=== PATIENT | female | born 1935 | race Two or more races ===

== ENCOUNTER 2018-03-03 08:37 | Outpatient (CLI) | payer OTHER | END 2018-03-03 15:06 | disposition home or self-care (01) | LOC: MAMO-SONO 08:37 | DX: Z12.31 Encounter for screening mammogram for malignant neoplasm of breast (principal); Z13.820 Encounter for screening for osteoporosis; I11.9 Hypertensive heart disease without heart failure; F03.91 Unspecified dementia, unspecified severity, with behavioral disturbance; Z68.30 Body mass index [BMI] 30.0-30.9, adult ==

== ENCOUNTER 2018-03-13 09:05 | Outpatient (CLI) | payer OTHER | END 2018-03-13 13:51 | disposition home or self-care (01) | LOC: NUCLEAR 09:05 | DX: M81.0 Age-related osteoporosis without current pathological fracture (principal) ==

== ENCOUNTER 2018-07-27 13:30 | Emergency (ER) | payer OTHER ==
[~2018-07-27] VITALS: Ht 162.6 cm; Wt 68.0 kg
[2018-07-27] MEDS ORDERED: COZAAR25 MG PO (14:20)
== END 2018-07-27 17:20 | disposition home or self-care (01) ==
LOC: ER 13:30
DX: N39.0 Urinary tract infection, site not specified (principal); R10.13 Epigastric pain; M54.89 Other dorsalgia

== ENCOUNTER 2018-11-04 14:15 | Outpatient (CLI) | payer OTHER ==
[~2018-11-04 14:15] MED LIST: COZAAR25 MG PO
== END 2018-11-04 15:15 | disposition home or self-care (01) ==
LOC: RAD 14:15
DX: M17.11 Unilateral primary osteoarthritis, right knee (principal); M54.5 Low back pain; K29.00 Acute gastritis without bleeding

== ENCOUNTER → 2019-01-21 | Outpatient (CLI) | payer OTHER | END | disposition home or self-care (01) | LOC: RAD 11:49 | DX: M54.2 Cervicalgia (principal) ==

== ENCOUNTER 2019-02-24 15:44 | Emergency (ER) | payer OTHER ==
[~2019-02-24] VITALS: Ht 160 cm; Wt 76.7 kg
== END 2019-02-24 17:12 | disposition home or self-care (01) ==
LOC: ER 15:44
DX: N64.4 Mastodynia (principal)

== ENCOUNTER 2019-03-27 12:30 | Emergency (ER) | payer OTHER ==
[~2019-03-27] VITALS: Ht 152.4 cm; Wt 76.2 kg
[2019-03-27] MEDS ORDERED: ASA81 MG (13:08)
== END 2019-03-27 14:47 | disposition home or self-care (01) ==
LOC: ER 12:30
DX: H92.02 Otalgia, left ear (principal); M54.2 Cervicalgia

== ENCOUNTER 2019-04-24 11:15 | Emergency (ER) | payer OTHER ==
[~2019-04-24] VITALS: Ht 157.5 cm; Wt 76.7 kg
[~2019-04-24 11:15] MED LIST changes: +ASA81 MG
== END 2019-04-24 14:27 | disposition home or self-care (01) ==
LOC: ER 11:15
DX: R10.13 Epigastric pain (principal); M54.2 Cervicalgia

== ENCOUNTER 2019-08-16 12:17 | Outpatient (CLI) | payer OTHER | END 2019-08-16 12:19 | disposition home or self-care (01) | LOC: RAD 12:17 | DX: M25.561 Pain in right knee (principal) ==

== ENCOUNTER → 2019-08-25 | Outpatient (CLI) | payer OTHER | END | disposition home or self-care (01) | LOC: SONOGRAMA 12:27 | DX: Z12.39 Encounter for other screening for malignant neoplasm of breast (principal) ==

== ENCOUNTER 2019-11-08 09:24 | Outpatient (CLI) | payer OTHER | END 2019-11-08 09:26 | disposition home or self-care (01) | LOC: SONOGRAMA 09:24 | DX: E04.2 Nontoxic multinodular goiter (principal) ==

== ENCOUNTER 2019-11-23 11:58 | Emergency (ER) | payer OTHER ==
[~2019-11-23] VITALS: Ht 152.4 cm; Wt 72.6 kg
== END 2019-11-23 15:01 | disposition home or self-care (01) ==
LOC: ER 11:58
DX: R42 Dizziness and giddiness (principal)

== ENCOUNTER → 2020-09-16 | Emergency (ER) | payer OTHER ==
[~2020-09-16] VITALS: Ht 149.9 cm; Wt 76.2 kg
[~2020-09-16] MED LIST changes: +CARAFATE1 GM PO; +MECLIZINE HCL25 MG PO; +PRILOSEC OTC20 MG PO; +TENORMIN25 MG
== END | disposition home or self-care (01) ==
LOC: ER 12:02
DX: R42 Dizziness and giddiness (principal); R10.13 Epigastric pain; Z03.818 Encounter for observation for suspected exposure to other biological agents ruled out

== ENCOUNTER → 2020-10-07 | Emergency (ER) | payer OTHER ==
[~2020-10-07] VITALS: Ht 152.4 cm; Wt 71.7 kg
== END | disposition home or self-care (01) ==
LOC: ER 16:30
DX: K29.60 Other gastritis without bleeding (principal); Z03.818 Encounter for observation for suspected exposure to other biological agents ruled out

== ENCOUNTER → 2020-10-27 | Emergency (ER) | payer OTHER ==
[~2020-10-27] VITALS: Ht 160 cm; Wt 70.8 kg
== END | disposition left against medical advice (07) ==
LOC: ER 13:29
DX: Z53.21 Procedure and treatment not carried out due to patient leaving prior to being seen by health care provider (principal)

== ENCOUNTER 2024-06-21 12:36 | Emergency (ER) | payer OTHER ==
[~2024-06-21] VITALS: Ht 152.4 cm; Wt 68.0 kg
[2024-06-21] MEDS ORDERED: KETOROLAC TROMETHAMINE 15 MG VIAL IM STA (13:37)
[2024-06-21] MEDS ORDERED: KETOROLAC TROMETHAMINE 30 MG VIAL ONE (13:49)
== END 2024-06-21 14:03 | disposition home or self-care (01) ==
LOC: ER 12:37
DX: M25.562 Pain in left knee (principal); M25.561 Pain in right knee
CPT/HCPCS: 96372; 99282; J1885

== ENCOUNTER 2024-07-02 12:42 | Emergency (ER) | payer OTHER ==
[~2024-07-02] VITALS: Ht 162.6 cm; Wt 81.6 kg
[2024-07-02 13:53] LABS: HEMATOCRIT 38.9 % (36.0-45.00); HEMOGLOBIN 13.5 g/dL (12.0-15.00); MEAN CELL VOLUME 93.8 fL (80.00-100.00); MEAN CORPUSCULAR HEMOGLOBIN 32.6 pg (27.00-32.0); MEAN CORPUSCULAR HGB CONC 34.7 g/dl (32.0-36.0); PLATELET COUNT 184 K/uL (150-450); RED BLOOD COUNT 4.15 M/uL (4.00-6.00); RED CELL DISTRIBUTION WIDTH 13.8 % (11.5-14.5)
[2024-07-02 14:09] LABS: ERYTHROCYTE SEDIMENTATION RATE 10 mm/hr
== END 2024-07-02 15:34 | disposition home or self-care (01) ==
LOC: ER 12:44
PROVIDERS: Emergency Medicine
DX: M25.561 Pain in right knee (principal); M17.11 Unilateral primary osteoarthritis, right knee; R10.9 Unspecified abdominal pain; I10 Essential (primary) hypertension

== ENCOUNTER 2024-08-27 13:09 | Emergency (ER) | payer OTHER ==
[~2024-08-27] VITALS: Ht 152.4 cm; Wt 72.6 kg
[2024-08-27] MEDS ORDERED: KETOROLAC TROMETHAMINE 60 MG VIAL IM STA (14:50)
== END 2024-08-27 18:40 | disposition home or self-care (01) ==
LOC: ER 13:11
DX: M19.90 Unspecified osteoarthritis, unspecified site (principal)
CPT/HCPCS: 96372; 99282; J1885

== ENCOUNTER → 2024-10-18 | Emergency (ER) | payer OTHER ==
[~2024-10-18] VITALS: Ht 157.5 cm; Wt 68.0 kg
== END | disposition left against medical advice (07) ==
LOC: ER 13:27
DX: Z53.21 Procedure and treatment not carried out due to patient leaving prior to being seen by health care provider (principal)

== ENCOUNTER → 2024-10-26 | Emergency (ER) | payer OTHER ==
[~2024-10-26] VITALS: Ht 152.4 cm; Wt 68.0 kg
[2024-10-26 10:49] VITALS: BP 153/66; O2SAT 99
== END | disposition left against medical advice (07) ==
LOC: ER 09:51
DX: Z53.21 Procedure and treatment not carried out due to patient leaving prior to being seen by health care provider (principal)

== ENCOUNTER → 2025-03-12 | Emergency (ER) | payer OTHER ==
[~2025-03-12] VITALS: Ht 157.5 cm; Wt 63.5 kg
[2025-03-12 11:12] LABS: BASO % 0.4 % (0.1-1.2); EOS # 0.06 (0.04-0.54); EOS % 1.1 % (0.7-7.0); HEMATOCRIT 40.2 % (34.1-44.9); HEMOGLOBIN 13.4 g/dL (11.2-15.7); LYMPH # 1.53 (1.18-3.74); MEAN CORPUSCULAR HEMOGLOBIN 30.5 pg (25.6-32.2); MONO # 0.32 (0.24-0.82); MONO % 5.7 % (4.7-12.5); NEUT # 3.72 (1.56-6.13); NEUT % 65.6 % (34.0-71.1); PLATELET COUNT 195 K/uL (163-369); RED BLOOD COUNT 4.39 M/uL (3.93-5.22); RED CELL DISTRIBUTION WIDTH 13.3 % (11.6-14.4)
[2025-03-12 11:46] LABS: BILIRUBIN TOTAL 0.48 mg/dL (0.3-1.2); CALCIUM 9.1 mg/dL (8.5-10.1); CREATININE SERUM 0.78 mg/dL (0.55-1.02); GFR 69.54; GLOBULINA 4.3 G/DL (2.4-3.5); POTASSIUM 4.1 mEq/L (3.5-5.1); TOTAL PROTEIN 7.3 gm/dL (6.4-8.2)
[2025-03-12 12:28] LABS: URINE APPEARANCE Clear; URINE BILIRRUBIN Negative (NEGATIVE); URINE BLOOD NHT; URINE COLOR Yellow; URINE GLUCOSE Negative (NEGATIVE); URINE KETONE Negative (NEGATIVE); URINE LEUKOCYTE Small; URINE NITRATE Negative; URINE PROTEIN Negative (NEGATIVE); URINE UROBILINOGEN 0.2 E.U./dl
[2025-03-12 12:31] LABS: URINE BACTERIA 64.8 uL (0.0-1933); URINE EPITHELIAL CELLS 16.4 uL (0.0-38.8); URINE RBC 33.5 uL (0.0-20.8); URINE WBC 3.6 uL (0.0-23.2)
== END | disposition home or self-care (01) ==
LOC: ER 09:28
PROVIDERS: Emergency Medicine
DX: R10.9 Unspecified abdominal pain (principal); I10 Essential (primary) hypertension; K57.30 Diverticulosis of large intestine without perforation or abscess without bleeding; I71.40 Abdominal aortic aneurysm, without rupture, unspecified

== ENCOUNTER 2025-03-16 10:46 | Emergency (ER) | payer OTHER ==
[~2025-03-16] VITALS: Ht 157.5 cm; Wt 76.2 kg
== END 2025-03-16 13:31 | disposition home or self-care (01) ==
LOC: ER 11:15
DX: R25.2 Cramp and spasm (principal); M19.90 Unspecified osteoarthritis, unspecified site; I10 Essential (primary) hypertension